=== PATIENT | male | born 1975 | race Caucasian/White ===

== ENCOUNTER 2021-06-14 07:21 | Day surgery (SDC) | payer OTHER ==
[~2021-06-14] VITALS: Ht 180.3 cm; Wt 75.2 kg
[2021-06-14] MEDS ORDERED: CHLORHEXIDINE 15 ML UDC ONE (07:40)
[2021-06-14 07:45] VITALS: BP 144/91
[2021-06-14] MEDS ORDERED: LACTATED RINGERS 1,000 ML IV SCH (08:00)
[2021-06-14] MEDS ORDERED: CHLORHEXIDINE 15 ML UDC PO ONE (08:00)
[2021-06-14] MEDS ORDERED: EPINEPHRINE 1 MG/ML, 1ML ONE (09:46)
[2021-06-14] MEDS ORDERED: BUPIVACAINE/PF 0.5% ONE (09:46)
[2021-06-14] MEDS ORDERED: MEPERIDINE/PF 25MG/0.5ML IVPush PRN (10:00)
[2021-06-14] MEDS ORDERED: LABETALOL 5MG/ML, 20ML IV PRN (10:00)
[2021-06-14] MEDS ORDERED: DIAZEPAM 5 MG/ML, 2ML IVPush PRN (10:00)
[2021-06-14] MEDS ORDERED: OXYcodone 5 MG/5 ML ORAL.SOL UDC PO PRN (10:00)
[2021-06-14] MEDS ORDERED: HYDROmorphone 1 MG/ML, 1ML INJ IVPush PRN (10:00)
[2021-06-14] MEDS ORDERED: ACETAMINOPHEN 325 MG TABLET PO PRN (10:00)
[2021-06-14] MEDS ORDERED: hydrALAzine 20 MG/ML, 1ML IV PRN (10:00)
[2021-06-14] MEDS ORDERED: PROMETHAZINE 25 MG/ML, 1ML IVPush PRN (10:00)
[2021-06-14] MEDS ORDERED: KETOROLAC 30 MG/1 ML IVPush PRN (10:00)
[2021-06-14] MEDS ORDERED: FENTANYL PF 100 MCG/2ML IV PRN (10:00)
[2021-06-14] MEDS ORDERED: ONDANSETRON 2MG/ML, 2ML IVPush PRN (10:00)
[2021-06-14] MEDS ORDERED: MIDAZOLAM 1 MG/ML, 2ML ONE (10:06)
[2021-06-14] MEDS ORDERED: FENTANYL PF 100 MCG/2ML ONE ×2 (10:08→10:58)
[2021-06-14] MEDS ORDERED: HYDR-2214 PO (10:30)
[2021-06-14] MEDS ORDERED: OXYcodone 5 MG/5 ML ORAL.SOL UDC ONE (10:58)
[2021-06-14] MEDS ORDERED: ACETAMINOPHEN 650 MG/20.3 ML UDC ONE (10:58)
== END 2021-06-14 12:42 | disposition home or self-care (01) ==
LOC: OUT 07:21
PROVIDERS: ATTEND Surgery
DX: K81.1 Chronic cholecystitis (principal); Z20.822 Contact with and (suspected) exposure to COVID-19; Z79.899 Other long term (current) drug therapy; Z87.891 Personal history of nicotine dependence
CPT/HCPCS: 47562; 88304; J0171; J2250; J3010; J7120; U0003; U0005